=== PATIENT | male | born 1985 | race Caucasian/White ===

== ENCOUNTER → 2016-11-30 | Outpatient (CLI) | payer BC ==
[~2016-11-30] MED LIST: IBUP80TA PO; PERC5TAB6 PO
[2016-11-30 13:31] LABS: ALBUMIN 4.2 GM/DL (3.2-5.2); ANION GAP 9 MEQ/L (8-16); BLOOD UREA NITROGEN 14 MG/DL (7-18); CALCIUM LEVEL 9.6 MG/DL (8.5-10.1); CARBON DIOXIDE LEVEL 28 MEQ/L (21-32); CHLORIDE LEVEL 102 MEQ/L (98-107); CREATININE FOR GFR 1.03 MG/DL (0.70-1.30); GLOMERULAR FILTRATION RATE > 60.0 (>60); GLUCOSE, FASTING 99 MG/DL (70-105); PHOSPHORUS LEVEL 3.3 MG/DL (2.5-4.9); POTASSIUM SERUM 4.7 MEQ/L (3.5-5.1); SODIUM LEVEL 139 MEQ/L (136-145); URIC ACID 6.9 MG/DL (3.5-7.2)
== END ==
LOC: M WUC 09:14
PROVIDERS: ATTEND Physician Assistant
DX: M10.042 Idiopathic gout, left hand (principal)

== ENCOUNTER 2022-01-19 13:21 | Emergency (ER) | payer BC ==
[~2022-01-19] VITALS: Ht 185.4 cm; Wt 105.3 kg
[~2022-01-19 13:21] MED LIST changes: +PERC5TAB12 PO; -PERC5TAB6 PO
[2022-01-19 15:38] LABS: BASO % 0.5 % (0.0-1.0); EOS # 0.1 10^3/uL (0.0-0.5); EOS % 0.9 % (0.0-3.0); HEMATOCRIT 38.5 % (42.0-52.0); HEMOGLOBIN 13.1 g/dl (13.5-17.5); LYMPH # 1.5 10^3/uL (1.5-5.0); LYMPH % 23.4 % (24.0-44.0); MEAN CORPUSCULAR VOLUME 85.4 fl (80.0-96.0); MONO # 0.4 10^3/uL (0.0-0.8); MONO % 5.3 % (2.0-8.0); NEUTROPHILS # 4.6 10^3/uL (1.5-8.5); NEUTROPHILS % 69.4 % (36.0-66.0); PLATELET COUNT, AUTOMATED 309 10^3/uL (150-450); RED BLOOD COUNT 4.51 10^6/uL (4.30-6.10); WHITE BLOOD COUNT 6.6 10^3/uL (4.0-10.0)
[2022-01-19] MEDS ORDERED: NS 1,000 ML IV ONE (15:50)
[2022-01-19 16:07] LABS: ALT/SGPT 40 U/L (12-78); BILIRUBIN,TOTAL 0.4 MG/DL (0.2-1.0); BLOOD UREA NITROGEN 8 MG/DL (7-18); CALCIUM LEVEL 9.3 MG/DL (8.5-10.1); CARBON DIOXIDE LEVEL 26 MEQ/L (21-32); CHLORIDE LEVEL 106 MEQ/L (98-107); CREATININE FOR GFR 0.96 MG/DL (0.70-1.30); GLOMERULAR FILTRATION RATE > 60.0 (>60); GLUCOSE, FASTING 91 MG/DL (70-100); POTASSIUM SERUM 4.2 MEQ/L (3.5-5.1); SODIUM LEVEL 139 MEQ/L (136-145)
[2022-01-19 17:05] VITALS: BP 132/65
== END 2022-01-19 17:05 | disposition home or self-care (01) ==
LOC: M ED 13:21
DX: R42 Dizziness and giddiness (principal)

== ENCOUNTER 2024-07-15 16:07 | Emergency (ER) | payer BC ==
[~2024-07-15] VITALS: Ht 188 cm; Wt 105.5 kg
[2024-07-15] MEDS: IBUPROFEN 800 MG TAB PO ONE (22:44)
[2024-07-15] MEDS ORDERED: PRED20TA PO (23:08)
[2024-07-15 23:13] VITALS: BP 127/97; TEMP 99.2; O2SAT 97
[2024-07-15] MEDS: predniSONE 20 MG TAB PO ONE (23:33)
[2024-07-15] MEDS: OXYCODONE/APAP 5MG/325MG(HOME DOSE PACK) PO ONE (23:33)
== END 2024-07-15 23:52 | disposition home or self-care (01) ==
LOC: M ED 16:07
DX: M70.52 Other bursitis of knee, left knee (principal); F10.10 Alcohol abuse, uncomplicated; Z79.52 Long term (current) use of systemic steroids
CPT/HCPCS: 93971; 99284; J7512

== ENCOUNTER → 2025-03-18 | Outpatient (CLI) | payer BC ==
[~2025-03-18] MED LIST changes: +PRED20TA PO
== END ==
LOC: M WUC 13:24
PROVIDERS: ATTEND Physician Assistant Medical
DX: M79.89 Other specified soft tissue disorders (principal); M79.641 Pain in right hand; M79.642 Pain in left hand; M19.041 Primary osteoarthritis, right hand; M19.042 Primary osteoarthritis, left hand

== ENCOUNTER → 2025-03-25 | Outpatient (REF) | payer BC ==
[2025-03-25 15:44] LABS: C REACTIVE PROTEIN QUANTITATIV 0.52 MG/DL (<1.0)
[2025-03-25 15:46] LABS: RHEUMATOID FACTOR QUANT < 3.5 IU/ML (<14)
== END ==
LOC: M LAB REF 14:26
PROVIDERS: ATTEND Physician Assistant Medical
DX: M79.642 Pain in left hand (principal); M25.442 Effusion, left hand